=== PATIENT | male | born 2000 | race Caucasian/White ===

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

== ENCOUNTER 2022-09-13 21:42 | Emergency (ER) | payer MEDICAID ==
[2022-09-13] MEDS ORDERED: Lidocaine 1% 5 ML VIAL INJECT ONE (21:43)
== END 2022-09-13 22:15 | disposition home or self-care (01) ==
LOC: JP.ED 21:42
DX: S61.242A Puncture wound with foreign body of right middle finger without damage to nail, initial encounter (principal); Z88.0 Allergy status to penicillin; Z88.2 Allergy status to sulfonamides; W45.8XXA Other foreign body or object entering through skin, initial encounter
CPT/HCPCS: 99282